=== PATIENT | male | born 1955 | race Caucasian/White ===

== ENCOUNTER 2016-10-03 01:10 | Emergency (ER) | payer MEDICARE, MEDICAID ==
[~2016-10-03 01:10] MED LIST: CEPHALEXIN500 M1 PO; COLACE100 MG PO; DILANTIN 100MG100 MG PO; LORTAB 5/500 501 TAB PO; LORTAB 7.5/5001 TAB PO; NITRO-DUR0.1 MG/PAT TD; NO HOME MEDICATIONS
[2016-10-03 01:25] LABS: BASO % 0.4 % (0.0-2.0); EOS # 0.5 (0.0-0.7); EOS % 4.9 % (0-4.0); GRAN % 50.3 % (42.2-75.2); HEMATOCRIT 38.3 % (42.0-52.0); HEMOGLOBIN 13.2 g/dl (13.5-18.0); LYMPH # 3.8 (1.2-3.4); LYMPH % 38.7 % (20.0-51.0); MEAN CELL VOLUME 90 fl (80.0-100.0); MEAN CORPUSCULAR HEMOGLOBIN 31 pg (27.0-31.0); MEAN CORPUSCULAR HGB CONC 35 g/dl (33.0-37.0); MEAN PLATELET VOLUME 8.8 fl (7.4-10.4); MONO # 0.5 (0.1-0.6); MONO % 5.4 % (1.7-9.3); PLATELET COUNT 262 K/mm3 (130-400); RED BLOOD COUNT 4.26 M/mm3 (4.20-5.60); REDCELL DISTRIBUTION WIDTH-CV 12.4 % (11.5-14.5); WHITE BLOOD COUNT 9.8 K/mm3 (4.8-10.8)
[2016-10-03 01:33] VITALS: TEMP 98.7
[2016-10-03 01:36] LABS: ALBUMIN 4.7 gm/dL (3.5-5.0); BILIRUBIN,TOTAL 0.5 mg/dL (0.0-1.0); CALCIUM 9.6 mg/dL (8.4-10.2); CREATININE, serum 0.96 mg/dL (0.66-1.25); POTASSIUM 3.9 mmol/L (3.4-5.0)
[2016-10-03 02:33] LABS: AMPHETAMINE URINE NEGATIVE; BARBITURATES URINE NEGATIVE; BENZODIAZEPINES URINE NEGATIVE; BUPRENORPHINE URINE NEGATIVE; METHADONE URINE NEGATIVE; OPIATES URINE NEGATIVE; OXYCODONE URINE NEGATIVE; PHENCYCLIDINE URINE NEGATIVE; PROPOXYPHENE URINE NEGATIVE; THC CANNABINOIDS URINE NEGATIVE
[2016-10-03 03:15] VITALS: BP 112/81; PULSE 67
== END 2016-10-03 03:37 | disposition home or self-care (01) ==
LOC: COL.ER 01:10
PROVIDERS: Emergency Medicine
DX: S09.90XA Unspecified injury of head, initial encounter (principal); M54.2 Cervicalgia; W01.198A Fall on same level from slipping, tripping and stumbling with subsequent striking against other object, initial encounter; Y93.41 Activity, dancing; F10.120 Alcohol abuse with intoxication, uncomplicated; Y90.8 Blood alcohol level of 240 mg/100 ml or more; R40.4 Transient alteration of awareness; I69.851 Hemiplegia and hemiparesis following other cerebrovascular disease affecting right dominant side; Z87.820 Personal history of traumatic brain injury

== ENCOUNTER 2017-03-20 01:50 | Emergency (ER) | payer MEDICARE, MEDICAID ==
[~2017-03-20] VITALS: Ht 165.1 cm; Wt 56.0 kg
[2017-03-20 01:55] VITALS: TEMP 97.9
[2017-03-20 02:23] LABS: BASO # 0.1 (0.0-0.2); BASO % 0.7 % (0.0-2.0); EOS # 0.5 (0.0-0.7); EOS % 6.1 % (0-4.0); GRAN # 4.2 (1.4-6.5); GRAN % 50.6 % (42.2-75.2); HEMATOCRIT 37.2 % (42.0-52.0); HEMOGLOBIN 12.5 g/dl (13.5-18.0); LYMPH % 35.3 % (20.0-51.0); MEAN CELL VOLUME 91 fl (80.0-100.0); MEAN CORPUSCULAR HEMOGLOBIN 31 pg (27.0-31.0); MEAN CORPUSCULAR HGB CONC 34 g/dl (33.0-37.0); MEAN PLATELET VOLUME 8.9 fl (7.4-10.4); MONO # 0.6 (0.1-0.6); MONO % 6.9 % (1.7-9.3); PLATELET COUNT 253 K/mm3 (130-400); RED BLOOD COUNT 4.09 M/mm3 (4.20-5.60); REDCELL DISTRIBUTION WIDTH-CV 12.8 % (11.5-14.5); WHITE BLOOD COUNT 8.4 K/mm3 (4.8-10.8)
[2017-03-20 02:35] LABS: ADJUSTED CALCIUM 8.5 mg/dL (8.4-10.2); ALANINE AMINOTRANSFERASE 30 U/L (21-72); ALBUMIN 4.3 gm/dL (3.5-5.0); ALKALINE PHOSPHATASE 58 U/L (50-136); ANION GAP 15 mmol/L (7-16); BILIRUBIN,TOTAL 0.6 mg/dL (0.0-1.0); BLOOD UREA NITROGEN 21 mg/dL (9-20); CALCIUM 8.7 mg/dL (8.4-10.2); CARBON DIOXIDE 23 mmol/L (22-30); CHLORIDE 100 mmol/L (98-107); CREATININE, serum 0.93 mg/dL (0.66-1.25); GLUCOSE 95 mg/dL (74-106); POTASSIUM 4.5 mmol/L (3.4-5.0); SODIUM 138 mmol/L (137-145)
[2017-03-20 02:54] LABS: TROPONIN-I < 0.012 ng/mL (0.000-0.034)
[2017-03-20] MEDS ORDERED: DILANTIN 100MG100 MG PO (05:13)
[2017-03-20 05:55] VITALS: PULSE 76
[2017-03-20 06:04] VITALS: BP 121/80
== END 2017-03-20 06:09 | disposition home or self-care (01) ==
LOC: COL.ER 01:50
PROVIDERS: Emergency Medicine
DX: R07.9 Chest pain, unspecified (principal); R41.82 Altered mental status, unspecified; F10.129 Alcohol abuse with intoxication, unspecified; Y90.7 Blood alcohol level of 200-239 mg/100 ml; S00.33XA Contusion of nose, initial encounter; S00.31XA Abrasion of nose, initial encounter; X58.XXXA Exposure to other specified factors, initial encounter; R56.9 Unspecified convulsions
CPT/HCPCS: J7030; Q2009

== ENCOUNTER 2018-03-14 23:03 | Emergency (ER) | payer MEDICARE, MEDICAID ==
[~2018-03-14] VITALS: Ht 165.1 cm; Wt 55.9 kg
[2018-03-14 23:12] LABS: COLLECTION METHOD CLEAN CATCH
[2018-03-14 23:13] VITALS: TEMP 97.5
[2018-03-14 23:13] LABS: BASO # 0.1 (0.0-0.2); BASO % 0.7 % (0.0-2.0); EOS # 0.5 (0.0-0.7); EOS % 5.7 % (0-4.0); GRAN # 4.9 (1.4-6.5); GRAN % 53.1 % (42.2-75.2); HEMATOCRIT 39.7 % (42.0-52.0); HEMOGLOBIN 13.8 g/dl (13.5-18.0); LYMPH # 3.2 (1.2-3.4); LYMPH % 34.4 % (20.0-51.0); MEAN CELL VOLUME 89 fl (80.0-100.0); MEAN CORPUSCULAR HEMOGLOBIN 31 pg (27.0-31.0); MEAN CORPUSCULAR HGB CONC 35 g/dl (33.0-37.0); MEAN PLATELET VOLUME 8.4 fl (7.4-10.4); MONO # 0.5 (0.1-0.6); MONO % 5.9 % (1.7-9.3); PLATELET COUNT 264 K/mm3 (130-400); RED BLOOD COUNT 4.48 M/mm3 (4.20-5.60); REDCELL DISTRIBUTION WIDTH-CV 12.5 % (11.5-14.5)
[2018-03-14 23:18] LABS: PH 6 (5-8); SQUAMOUS EPITHELIAL None Seen /hpf; URINE APPEARANCE Clear; URINE BACTERIA None Seen /hpf; URINE BILIRUBIN Negative (NEGATIVE); URINE BLOOD 1+ (NEGATIVE); URINE COLOR Colorless; URINE GLUCOSE Negative (NEGATIVE); URINE KETONE Negative (NEGATIVE); URINE LEUKOCYTE ESTERASE Negative (NEGATIVE); URINE NITRATE Negative (NEGATIVE); URINE PROTEIN(semi-quant) Negative (NEGATIVE); URINE RBC 0-2 /hpf; URINE UROBILINOGEN Negative (NEGATIVE)
[2018-03-14 23:19] LABS: PROTHROMBIN TIME 10.9 SECONDS (9.7-12.8)
[2018-03-14 23:22] LABS: PARTIAL THROMBOPLASTIN TIME 31.3 SECONDS (26.0-37.0)
[2018-03-14 23:24] LABS: ALANINE AMINOTRANSFERASE 28 U/L (21-72); ALBUMIN 4.5 gm/dL (3.5-5.0); ALCOHOL(ethanol),MEDICAL 249 mg/dL; ALKALINE PHOSPHATASE 63 U/L (50-136); ANION GAP 17 mmol/L (7-16); AST,SGOT 29 U/L (15-37); BILIRUBIN,TOTAL 0.5 mg/dL (0.0-1.0); BLOOD UREA NITROGEN 14 mg/dL (9-20); CALCIUM 9.5 mg/dL (8.4-10.2); CARBON DIOXIDE 20 mmol/L (22-30); CHLORIDE 102 mmol/L (98-107); CREATININE, serum 0.89 mg/dL (0.66-1.25); GLUCOSE 104 mg/dL (74-106); SODIUM 139 mmol/L (137-145); TOTAL PROTEIN 8.3 gm/dL (6.4-8.2)
[2018-03-14 23:26] LABS: TRICYCLIC ANTIDEPRESS URINE NEGATIVE
[2018-03-14 23:37] LABS: TROPONIN-I < 0.012 ng/mL (0.000-0.034)
[2018-03-15 01:25] VITALS: BP 105/82; PULSE 68
== END 2018-03-15 01:25 | disposition home or self-care (01) ==
LOC: COL.ER 23:03
PROVIDERS: Family Medicine
DX: R07.89 Other chest pain (principal); F17.210 Nicotine dependence, cigarettes, uncomplicated; I25.10 Atherosclerotic heart disease of native coronary artery without angina pectoris; W18.39XA Other fall on same level, initial encounter
CPT/HCPCS: J7030

== ENCOUNTER 2018-04-12 00:01 | Emergency (ER) | payer MEDICARE, MEDICAID ==
[~2018-04-12] VITALS: Ht 165.1 cm; Wt 54.5 kg
[2018-04-12 00:03] VITALS: TEMP 98.6
[2018-04-12 00:50] LABS: BASO # 0.1 (0.0-0.2); BASO % 0.8 % (0.0-2.0); EOS # 0.5 (0.0-0.7); GRAN # 4.1 (1.4-6.5); GRAN % 54.4 % (42.2-75.2); HEMATOCRIT 36.8 % (42.0-52.0); HEMOGLOBIN 12.8 g/dl (13.5-18.0); LYMPH # 2.4 (1.2-3.4); MEAN CELL VOLUME 88 fl (80.0-100.0); MEAN CORPUSCULAR HEMOGLOBIN 31 pg (27.0-31.0); MEAN CORPUSCULAR HGB CONC 35 g/dl (33.0-37.0); MEAN PLATELET VOLUME 8.6 fl (7.4-10.4); MONO # 0.5 (0.1-0.6); MONO % 6.3 % (1.7-9.3); PLATELET COUNT 239 K/mm3 (130-400); RED BLOOD COUNT 4.18 M/mm3 (4.20-5.60); REDCELL DISTRIBUTION WIDTH-CV 12.4 % (11.5-14.5)
[2018-04-12 01:01] LABS: ALANINE AMINOTRANSFERASE 26 U/L (21-72); ALBUMIN 4.4 gm/dL (3.5-5.0); ALCOHOL(ethanol),MEDICAL 229 mg/dL; ALKALINE PHOSPHATASE 56 U/L (50-136); ANION GAP 16 mmol/L (7-16); AST,SGOT 30 U/L (15-37); BILIRUBIN,TOTAL 0.3 mg/dL (0.0-1.0); BLOOD UREA NITROGEN 12 mg/dL (9-20); CALCIUM 9.3 mg/dL (8.4-10.2); CARBON DIOXIDE 20 mmol/L (22-30); CHLORIDE 105 mmol/L (98-107); CREATININE, serum 0.77 mg/dL (0.66-1.25); GLUCOSE 98 mg/dL (74-106); LIPASE 106 U/L (23-300); PHOSPHOROUS 3.5 mg/dL (2.5-4.5); POTASSIUM 3.8 mmol/L (3.4-5.0); SODIUM 141 mmol/L (137-145); TOTAL PROTEIN 7.4 gm/dL (6.4-8.2)
[2018-04-12 01:14] LABS: TROPONIN-I < 0.012 ng/mL (0.000-0.034)
[2018-04-12 03:18] VITALS: BP 107/79; PULSE 56
== END 2018-04-12 03:27 | disposition home or self-care (01) ==
LOC: COL.ER 00:01
PROVIDERS: Emergency Medicine
DX: F10.129 Alcohol abuse with intoxication, unspecified (principal); R07.9 Chest pain, unspecified
CPT/HCPCS: J3411; J7030

== ENCOUNTER 2018-07-12 00:41 | Emergency (ER) | payer MEDICARE, MEDICAID ==
[~2018-07-12] VITALS: Ht 165.1 cm; Wt 63.6 kg
[2018-07-12 01:28] LABS: BASO # 0.1 (0.0-0.2); BASO % 0.8 % (0.0-2.0); EOS # 0.5 (0.0-0.7); EOS % 7.3 % (0-4.0); GRAN # 3.9 (1.4-6.5); GRAN % 52.3 % (42.2-75.2); HEMATOCRIT 40.5 % (42.0-52.0); HEMOGLOBIN 14.2 g/dl (13.5-18.0); LYMPH # 2.5 (1.2-3.4); MEAN CELL VOLUME 88 fl (80.0-100.0); MEAN CORPUSCULAR HEMOGLOBIN 31 pg (27.0-31.0); MEAN CORPUSCULAR HGB CONC 35 g/dl (33.0-37.0); MEAN PLATELET VOLUME 8.4 fl (7.4-10.4); MONO # 0.4 (0.1-0.6); MONO % 5.3 % (1.7-9.3); PLATELET COUNT 282 K/mm3 (130-400); REDCELL DISTRIBUTION WIDTH-CV 12.6 % (11.5-14.5)
[2018-07-12 01:38] LABS: ALANINE AMINOTRANSFERASE 33 U/L (21-72); ALBUMIN 4.8 gm/dL (3.5-5.0); ALCOHOL(ethanol),MEDICAL 257 mg/dL; ALKALINE PHOSPHATASE 57 U/L (50-136); ANION GAP 12 mmol/L (7-16); AST,SGOT 37 U/L (15-37); BILIRUBIN,TOTAL 0.3 mg/dL (0.0-1.0); BLOOD UREA NITROGEN 11 mg/dL (9-20); CALCIUM 9.4 mg/dL (8.4-10.2); CARBON DIOXIDE 25 mmol/L (22-30); CHLORIDE 101 mmol/L (98-107); GLUCOSE 93 mg/dL (74-106); LIPASE 110 U/L (23-300); MAGNESIUM 2.1 mg/dL (1.6-2.3); POTASSIUM 4.1 mmol/L (3.4-5.0); SODIUM 139 mmol/L (137-145); TOTAL PROTEIN 8.4 gm/dL (6.4-8.2)
[2018-07-12 01:49] LABS: TROPONIN-I < 0.012 ng/mL (0.000-0.034)
[2018-07-12 03:35] VITALS: BP 115/80; PULSE 68
== END 2018-07-12 03:37 | disposition home or self-care (01) ==
LOC: COL.ER 00:41
PROVIDERS: Nurse Practitioner
DX: F10.129 Alcohol abuse with intoxication, unspecified (principal); R07.89 Other chest pain; F17.220 Nicotine dependence, chewing tobacco, uncomplicated; Z88.0 Allergy status to penicillin; Y90.8 Blood alcohol level of 240 mg/100 ml or more; Z98.890 Other specified postprocedural states

== ENCOUNTER 2018-07-26 00:44 | Emergency (ER) | payer MEDICARE, MEDICAID ==
[~2018-07-26] VITALS: Ht 165.1 cm; Wt 54.5 kg
[2018-07-26 00:45] VITALS: TEMP 97.4
[2018-07-26 01:17] VITALS: BP 118/83; PULSE 67
== END 2018-07-26 01:18 | disposition home or self-care (01) ==
LOC: COL.ER 00:44
DX: F10.129 Alcohol abuse with intoxication, unspecified (principal); F17.220 Nicotine dependence, chewing tobacco, uncomplicated; Z98.890 Other specified postprocedural states

== ENCOUNTER 2019-05-17 20:22 | Emergency (ER) | payer MEDICARE, MEDICAID ==
[~2019-05-17] VITALS: Ht 165.1 cm; Wt 58.2 kg
[2019-05-17 20:27] VITALS: TEMP 97.9
[2019-05-17 21:41] VITALS: BP 168/84; PULSE 78
== END 2019-05-17 21:30 | disposition home or self-care (01) ==
LOC: COL.ER 20:22
DX: H57.12 Ocular pain, left eye (principal); G89.18 Other acute postprocedural pain

== ENCOUNTER 2020-05-16 20:22 | Emergency (ER) | payer MEDICARE, MEDICAID ==
[~2020-05-16] VITALS: Ht 165.1 cm; Wt 68.2 kg
[2020-05-16 20:29] VITALS: TEMP 98.4
[2020-05-16 20:57] LABS: BASO # 0.1 (0.0-0.2); BASO % 0.9 % (0.0-2.0); EOS # 0.4 (0.0-0.7); EOS % 6.4 % (0-4.0); GRAN # 3.4 (1.4-6.5); GRAN % 57.9 % (42.2-75.2); HEMATOCRIT 37.4 % (42.0-52.0); HEMOGLOBIN 12.7 g/dl (13.5-18.0); LYMPH # 1.7 (1.2-3.4); LYMPH % 29.5 % (20.0-51.0); MEAN CELL VOLUME 93 fl (80.0-100.0); MEAN CORPUSCULAR HEMOGLOBIN 31 pg (27.0-31.0); MEAN CORPUSCULAR HGB CONC 34 g/dl (33.0-37.0); MEAN PLATELET VOLUME 8.9 fl (7.4-10.4); MONO # 0.3 (0.1-0.6); PLATELET COUNT 240 K/mm3 (130-400); RED BLOOD COUNT 4.04 M/mm3 (4.20-5.60)
[2020-05-16 21:03] LABS: INR 0.9 (0.8-3.0)
[2020-05-16 21:05] LABS: PARTIAL THROMBOPLASTIN TIME 26.9 SECONDS (26.0-37.0)
[2020-05-16 21:06] LABS: ALANINE AMINOTRANSFERASE 21 U/L (4-49); ALBUMIN 4.4 gm/dL (3.5-5.0); ALCOHOL(ethanol),MEDICAL 159 mg/dL; ALKALINE PHOSPHATASE 52 U/L (50-136); ANION GAP 13 mmol/L (7-16); AST,SGOT 33 U/L (15-37); BILIRUBIN,TOTAL 0.3 mg/dL (0.0-1.0); BLOOD UREA NITROGEN 16 mg/dL (9-20); CALCIUM 9.5 mg/dL (8.4-10.2); CARBON DIOXIDE 20 mmol/L (22-30); CHLORIDE 105 mmol/L (98-107); CREATININE, serum 1.08 (0.66-1.25); GLUCOSE 97 mg/dL (74-106); POTASSIUM 3.8 mmol/L (3.4-5.0); SODIUM 138 mmol/L (137-145); TOTAL PROTEIN 7.6 gm/dL (6.4-8.2)
[2020-05-16 21:09] LABS: ACETAMINOPHEN < 10 ug/mL (10-30); SALICYLATE < 1.0 mg/dL
[2020-05-16 21:10] LABS: D-DIMER < 200.00 ng/mLDDu (200-230)
[2020-05-16 21:19] LABS: TROPONIN-I < 0.012 ng/mL (0.000-0.035)
[2020-05-17 01:25] VITALS: BP 134/90; PULSE 68
== END 2020-05-17 01:25 | disposition home or self-care (01) ==
LOC: COL.ER 20:22
PROVIDERS: Emergency Medicine
DX: R07.89 Other chest pain (principal); I10 Essential (primary) hypertension; F17.220 Nicotine dependence, chewing tobacco, uncomplicated; Z88.0 Allergy status to penicillin; Z88.8 Allergy status to other drugs, medicaments and biological substances
CPT/HCPCS: J7030

== ENCOUNTER 2021-01-03 22:12 | Emergency (ER) | payer MEDICARE, MEDICAID ==
[~2021-01-03] VITALS: Ht 165.1 cm; Wt 59.1 kg
[2021-01-03 22:26] VITALS: TEMP 98.1
[2021-01-04] MEDS ORDERED: CEPHALEXIN500 M1 PO (01:42)
[2021-01-04 01:57] VITALS: BP 118/75; PULSE 69
== END 2021-01-04 01:57 | disposition home or self-care (01) ==
LOC: COL.ER 22:12
DX: S02.40CA Maxillary fracture, right side, initial encounter for closed fracture (principal); S02.2XXB Fracture of nasal bones, initial encounter for open fracture; F17.290 Nicotine dependence, other tobacco product, uncomplicated; Z88.0 Allergy status to penicillin; Z88.8 Allergy status to other drugs, medicaments and biological substances; W01.10XA Fall on same level from slipping, tripping and stumbling with subsequent striking against unspecified object, initial encounter; Y92.096 Garden or yard of other non-institutional residence as the place of occurrence of the external cause

== ENCOUNTER 2021-12-07 19:31 | Emergency (ER) | payer MEDICARE, MEDICAID ==
[~2021-12-07] VITALS: Ht 165.1 cm; Wt 59.1 kg
[2021-12-07 19:33] VITALS: BP 158/78; PULSE 77; TEMP 97.2
[2021-12-07 19:51] LABS: BASO # 0.1 K/mm3 (0.0-0.2); BASO % 1.1 % (0.0-2.0); EOS # 0.3 K/mm3 (0.0-0.7); EOS % 3.4 % (0.0-4.0); GRAN % 57.8 % (42.2-75.2); HEMATOCRIT 37.3 % (42.0-52.0); LYMPH # 2.8 K/mm3 (1.2-3.4); LYMPH % 31.6 % (20.0-51.0); MEAN CELL VOLUME 88 fl (80.0-100.0); MEAN CORPUSCULAR HEMOGLOBIN 31 pg (27-31); MEAN CORPUSCULAR HGB CONC 35 g/dl (33.0-37.0); MEAN PLATELET VOLUME 8.4 fl (7.4-10.4); MONO # 0.5 K/mm3 (0.1-0.6); MONO % 5.8 % (1.7-9.3); PLATELET COUNT 332 K/mm3 (130-400); RED BLOOD COUNT 4.22 M/mm3 (4.20-5.60); REDCELL DISTRIBUTION WIDTH-CV 12.2 % (11.5-14.5)
[2021-12-07 19:59] LABS: PROTHROMBIN TIME 10.5 SECONDS (9.7-12.8)
[2021-12-07 20:02] LABS: PARTIAL THROMBOPLASTIN TIME 29.4 SECONDS (26.0-37.0)
[2021-12-07 20:14] LABS: ALANINE AMINOTRANSFERASE 20 U/L (0-55); ALBUMIN 4.1 gm/dL (3.4-4.8); ALCOHOL(ethanol),MEDICAL 287 mg/dL (0-10); ALKALINE PHOSPHATASE 66 U/L (40-150); ANION GAP 12 mmol/L (7-16); AST,SGOT 28 U/L (5-34); BILIRUBIN,TOTAL 0.2 mg/dL (0.2-1.2); BLOOD UREA NITROGEN 14 mg/dL (8-26); CARBON DIOXIDE 21 mmol/L (23-31); CHLORIDE 99 mmol/L (98-107); CREATININE, serum 0.94 mg/dL (0.72-1.25); GLUCOSE 98 mg/dL (70-99); POTASSIUM 4.3 mmol/L (3.5-4.5); SODIUM 132 mmol/L (136-145); TOTAL PROTEIN 7.6 gm/dL (6.2-8.1)
[2021-12-07 20:20] LABS: TROPONIN-I < 0.010 ng/mL (0.00-0.033)
== END 2021-12-07 22:09 | disposition home or self-care (01) ==
LOC: COL.ER 19:31
PROVIDERS: Emergency Medicine
DX: F10.129 Alcohol abuse with intoxication, unspecified (principal); R07.89 Other chest pain; E87.1 Hypo-osmolality and hyponatremia; Z98.61 Coronary angioplasty status; Z88.8 Allergy status to other drugs, medicaments and biological substances

== ENCOUNTER 2022-04-20 22:43 | Emergency (ER) | payer MEDICARE, MEDICAID ==
[~2022-04-20] VITALS: Ht 165.1 cm; Wt 59.1 kg
[2022-04-20 22:44] VITALS: TEMP 97.8
[2022-04-20 23:04] LABS: BASO % 0.7 % (0.0-2.0); EOS # 0.4 K/mm3 (0.0-0.7); EOS % 6.2 % (0.0-4.0); GRAN # 2.4 K/mm3 (1.4-6.5); GRAN % 41.5 % (42.2-75.2); HEMOGLOBIN 12.7 g/dl (13.5-18.0); LYMPH # 2.5 K/mm3 (1.2-3.4); LYMPH % 42.4 % (20.0-51.0); MEAN CELL VOLUME 90 fl (80.0-100.0); MEAN CORPUSCULAR HEMOGLOBIN 31 pg (27-31); MEAN CORPUSCULAR HGB CONC 35 g/dl (33.0-37.0); MEAN PLATELET VOLUME 8.7 fl (7.4-10.4); MONO # 0.5 K/mm3 (0.1-0.6); PLATELET COUNT 191 K/mm3 (130-400); REDCELL DISTRIBUTION WIDTH-CV 12.7 % (11.5-14.5)
[2022-04-20 23:13] LABS: HEMATOCRIT 36.8 % (42.0-52.0)
[2022-04-20 23:16] LABS: PARTIAL THROMBOPLASTIN TIME 29.5 SECONDS (26.0-37.0)
[2022-04-20 23:22] LABS: ALANINE AMINOTRANSFERASE 32 U/L (0-55); ALCOHOL(ethanol),MEDICAL 214 mg/dL (0-10); ALKALINE PHOSPHATASE 58 U/L (40-150); ANION GAP 16 mmol/L (7-16); AST,SGOT 47 U/L (5-34); BILIRUBIN,TOTAL 0.3 mg/dL (0.2-1.2); BLOOD UREA NITROGEN 11 mg/dL (8-26); CALCIUM 8.8 mg/dL (8.4-10.2); CARBON DIOXIDE 17 mmol/L (23-31); CHLORIDE 100 mmol/L (98-107); GLUCOSE 87 mg/dL (70-99); SODIUM 133 mmol/L (136-145); TOTAL PROTEIN 7.1 gm/dL (6.2-8.1)
[2022-04-20 23:37] LABS: TROPONIN-I < 0.010 ng/mL (0.00-0.033)
[2022-04-21 01:56] VITALS: BP 113/79; PULSE 66
== END 2022-04-21 02:07 | disposition home or self-care (01) ==
LOC: COL.ER 22:43
PROVIDERS: Family Medicine
DX: R07.89 Other chest pain (principal); F10.20 Alcohol dependence, uncomplicated; Z98.61 Coronary angioplasty status
CPT/HCPCS: C9113

== ENCOUNTER 2022-12-04 01:47 | Emergency (ER) | payer MEDICARE, MEDICAID ==
[~2022-12-04] VITALS: Ht 165.1 cm; Wt 56.8 kg
[2022-12-04 01:50] VITALS: TEMP 97.5
[2022-12-04 03:30] VITALS: BP 142/78; PULSE 76
== END 2022-12-04 03:30 | disposition home or self-care (01) ==
LOC: COL.ER 01:47
DX: S09.90XA Unspecified injury of head, initial encounter (principal); F10.229 Alcohol dependence with intoxication, unspecified; M54.50 Low back pain, unspecified; F17.210 Nicotine dependence, cigarettes, uncomplicated; Z28.310 Unvaccinated for COVID-19; W18.30XA Fall on same level, unspecified, initial encounter; W22.8XXA Striking against or struck by other objects, initial encounter; Y92.480 Sidewalk as the place of occurrence of the external cause; Y93.01 Activity, walking, marching and hiking

== ENCOUNTER 2024-05-29 22:44 | Emergency (ER) | payer MEDICARE, MEDICAID ==
[~2024-05-29] VITALS: Ht 165.1 cm; Wt 54.5 kg
[2024-05-29 22:47] VITALS: TEMP 97.8
[2024-05-29] MEDS ORDERED: Morphine 4 MG/ML VIAL IV ONE (23:00)
[2024-05-29 23:09] LABS: BASO # 0.1 K/mm3 (0.0-0.2); BASO % 0.9 % (0.0-2.0); EOS # 0.7 K/mm3 (0.0-0.7); EOS % 8.7 % (0.0-4.0); GRAN # 3.9 K/mm3 (1.4-6.5); HEMATOCRIT 38.5 % (42.0-52.0); HEMOGLOBIN 13.2 g/dl (13.5-18.0); LYMPH # 2.9 K/mm3 (1.2-3.4); LYMPH % 36.2 % (20.0-51.0); MEAN CELL VOLUME 91 fl (80.0-100.0); MEAN CORPUSCULAR HEMOGLOBIN 31 pg (27-31); MEAN CORPUSCULAR HGB CONC 34 g/dl (33.0-37.0); MEAN PLATELET VOLUME 8.5 fl (7.4-10.4); MONO # 0.5 K/mm3 (0.1-0.6); PLATELET COUNT 249 K/mm3 (130-400); RED BLOOD COUNT 4.22 M/mm3 (4.20-5.60); REDCELL DISTRIBUTION WIDTH-CV 12.4 % (11.5-14.5)
[2024-05-29] MEDS ORDERED: Tenecteplase 50 MG/10 ML VIAL (after reconstitution) IV ONE (23:15)
[2024-05-29 23:19] LABS: PARTIAL THROMBOPLASTIN TIME 32.2 SECONDS (26.0-37.0)
[2024-05-29 23:24] LABS: ALANINE AMINOTRANSFERASE 18 U/L (0-55); ALKALINE PHOSPHATASE 57 U/L (40-150); ANION GAP 14 mmol/L (7-16); AST,SGOT 26 U/L (5-34); BILIRUBIN,TOTAL 0.4 mg/dL (0.2-1.2); BLOOD UREA NITROGEN 15 mg/dL (8-26); CHLORIDE 100 mEq/L (98-107); CREATININE, serum 1.11 mg/dL (0.72-1.25); GLUCOSE 101 mg/dL (70-99); POTASSIUM 3.8 mEq/L (3.5-4.5); PROTHROMBIN TIME 11.1 SECONDS (9.7-12.8); SODIUM 131 mEq/L (136-145)
[2024-05-29 23:34] LABS: TROPONIN-I < 0.010 ng/mL (0.00-0.033)
[2024-05-30 00:01] VITALS: BP 119/83; PULSE 55
== END 2024-05-30 00:01 | disposition short-term general hospital (02) ==
LOC: COL.ER 22:44
PROVIDERS: Emergency Medicine
DX: I21.3 ST elevation (STEMI) myocardial infarction of unspecified site (principal)
CPT/HCPCS: J2270; J3101